=== PATIENT | male | born 1960 | race Caucasian/White ===

== ENCOUNTER 2019-02-18 08:31 | Emergency (ER) | payer OTHER ==
[2019-02-18] MEDS ORDERED: Cyclobenzaprine TAB* 10 MG PO ONE (09:07)
[2019-02-18] MEDS ORDERED: oxyCODONE/Acetamin 5/325 MG* TAB PO ONE (09:07)
--- NOTE | 2019-02-18 09:14 | ED ---
Neck Pain - HPI Summary HPI Summary: The pt is a 58 yr old [place] [facility] [place] pain beginning 2 days [employer]. He states that he was coming back from his hunting camp when he started feeling left sided neck pain. He notes that it started in the mid day and that he has been having lots of other symptoms recently like memory loss and hip pain. He rates his current pain severity a 9/10. The pain is aggravated by moving his neck. No alleviating factors noted. He also reports some headache and felt feverish this morning. He has Hx of HTN and anxiety. - History of Current Complaint Chief Complaint: EDNeckComplaint Stated Complaint: CANT MOVE NECK/HEADACHE PER PT Time Seen by Provider: 02/18/19 08:40 Hx Obtained From: Patient Onset/Duration Of Injury/Symptoms: Days Timing: Constant, Lasting Days Onset/Duration: Sudden Onset, Started days ago, Still Present Severity Initially: Severe Severity Currently: Severe Pain Intensity: 9 Pain Scale Used: 0-10 Numeric Location: Discrete At: - cervical spine Character: Stiff Aggravating Factors: Movement - of neck Alleviating Factors: Nothing Associated Signs & Symptoms: Positive: Fever - since resolved, Headache - Allergies/Home Medications Allergies/Adverse Reactions: Allergies Allergy/AdvReac Type Severity Reaction Status Date / Time No Known Allergies Allergy Verified 02/18/19 08:37 PMH/Surg Hx/FS Hx/Imm Hx Cardiovascular History: Reports: Hx Hypercholesterolemia, Hx Hypertension Psychiatric History: Reports: Hx Anxiety - Surgical History Surgical History: None Surgery Procedure, Year, and Place: none - Immunization History Date of Influenza Vaccine: 02/2019 Infectious Disease History: No Infectious Disease History: Denies: Traveled Outside the [place] in Last 30 Days - Family History Known Family History: Positive: Hypertension - Social History Alcohol Use: Daily Substance Use Type: Reports: None Smoking Status (MU): Never Smoked Tobacco Review of Systems Positive: Fever Musculoskeletal: Other - pos - neck pain Positive: Headache All Other Systems Reviewed And Are Negative: Yes Physical Exam - Summary Physical Exam Summary: Constitutional: Well-developed, Well-nourished, Alert. (-) Distressed Skin: Warm, Dry HENT: Normocephalic; Atraumatic Eyes: Conjunctiva normal Neck: bilateral paraspinal tenderness, pain w ROM worse on L than R. Cardio: Rhythm regular, rate normal, Heart sounds normal; Intact distal pulses; Radial pulses are 2+ and symmetric. (-) Murmur Pulmonary/Chest wall: Effort normal. (-) Respiratory distress, (-) Wheezes, (-) Rales Abd: Soft, (-) tenderness, (-) Distension, (-) Guarding, (-) Rebound Musculoskeletal: (-) Edema, occipital tenderness at the base of the skull Lymph: (-) Cervical adenopathy Neuro: Alert, Oriented x3, Strength 5/5 in upper extremities and sensation intact Psych: Mood and affect Normal Triage Information Reviewed: Yes Vital Signs On Initial Exam: Initial Vitals Temp Pulse Resp BP Pulse Ox 98.5 F 95 16 143/92 98 02/18/19 08:34 02/18/19 08:34 02/18/19 08:34 02/18/19 08:34 02/18/19 08:34 Vital Signs Reviewed: Yes Procedures - Sedation Patient Received Moderate/Deep Sedation with Procedure: No Diagnostics - Vital Signs Vital Signs Temp Pulse Resp BP Pulse Ox 02/18/19 08:34 98.5 F 95 16 143/92 98 - Laboratory Result Diagrams: 02/18/19 10:35 02/18/19 10:35 Lab Statement: Any lab studies that have been ordered have been reviewed, and results considered in the medical decision making process. - CT CT Cervical Spine CT Interpretation Completed By: Radiologist Summary of CT Findings: IMPRESSION: DEGENERATIVE DISC DISEASE AND OSTEOARTHRITIS DESCRIBED ABOVE. ED Physician has reviewed this report. Re-Evaluation - Re-Evaluation First Eval Re-Evaluation Time: 10:27 Change: Improved Comment: Would now like to get blood work as discussed before. Pain slightly improved. Discussed CT findings Second Eval Re-Evaluation Time: 11:10 Comment: normal WBC, CRP. low suspicion infection (osteo/discitis), no risk factors for bacteremia. Plan for motrin/flexeril Neck Course/Dx - Course Course Of Treatment: 58-year-old male presents with upper neck pain. - physical exam with tenderness to the base of the occiput, bilateral cervical spine tenderness, ROM limited worse on L. Denies trauma. No infectious symptoms aside from feeling warm this morning. No fever on exam. Denies URI like symptoms. Suspect headache secondary to musculoskeletal cause. Given patient's diffuse pain, will check a CT of the neck however suspect this is most likely musculoskeletal. Patient given Flexeril and Percocet for pain. - Diagnoses Provider Diagnoses: Neck pain Discharge ED - Sign-Out/Discharge Documenting (check all that apply): Patient Departure - discharge - Discharge Plan Condition: Stable Disposition: HOME Prescriptions: Cyclobenzaprine TAB* [Flexeril 10 MG TAB*] 10 mg PO TID PRN 4 Days #12 tab PRN Reason: Pain - Moderate Ibuprofen TAB* [Motrin TAB* 800 MG] 800 mg PO Q6H 10 Days #30 tab Patient Education Materials: Neck Pain (ED) Referrals: Care [facility] [Outside] - 3 Days Additional Instructions: You were seen in the emergency department for neck pain. Your CT scan showed arthritis but no acute changes. Your lab work did not show any evidence of infection Please follow up with your primary care doctor in next 2-3 days and return to emergency department for worsening pain, numbness or weakness of arms or legs, fevers, worsening headaches or concerning symptoms. It was a pleasure taking care of you today. - Billing Disposition and Condition Condition: STABLE Disposition: Home - Attestation Statements Document Initiated by Vickeye: Yes Documenting Scribe: Mohit Agudelo Provider For Whom Kim is Documenting (Include Credential): Guillermina Condon MD Scribe Attestation: I, Mohit Agudelo, scribed for Guillermina Condon MD on 02/18/19 at 1120. Scribe Documentation Reviewed: Yes Provider Attestation: The documentation as recorded by the [email or web address] accurately reflects the service I personally performed and the decisions made by me, Guillermina Condon MD Status of Scribe Document: Viewed
[2019-02-18 10:51] LABS: ABS Lymphocytes 1.3 10^3/ul (1.0-4.8); ABS Monocytes 0.4 10^3/ul (0-0.8); ABS Neutrophils 6.2 10^3/ul (1.5-7.7); Eosinophil % 0.4 %; Hematocrit 41 % (42-52); Hemoglobin 13.6 g/dL (14.0-18.0); Lymphocyte % 16.5 %; Mean Corpuscular HGB Conc 34 g/dL (31-36); Mean Corpuscular Hemoglobin 30 pg (27-31); Mean Corpuscular Volume 88 fL (80-94); Mean Platelet Volume 9.5 fL (7.4-10.4); Nucleated Red Blood Cells % 0.1; Platelet Count 101 10^3/uL (150-450); Red Blood Count 4.61 10^6 /uL (4.18-5.48); Red Cell Distribution Width 14 % (10-15)
[2019-02-18 11:02] LABS: Albumin 4.4 g/dL (3.2-5.2); Albumin/Globulin Ratio 1.8 (1-3); BUN/Creatinine Ratio 11.9 (8-20); C Reactive Protein 6.94 mg/L (<8.01); Calcium 9.2 mg/dL (8.6-10.3); EGFR African American 84.1 (>60); EGFR Non-African American 69.5 (>60); Globulin 2.5 g/dL (2-4); Potassium 3.7 mmol/L (3.5-5.0); Total Bilirubin 0.5 mg/dL (0.2-1.0); Total Protein 6.9 g/dL (6.4-8.9)
[2019-02-18 11:51] VITALS: BP 109/69
== END 2019-02-18 11:54 | disposition home or self-care (01) ==
LOC: ED 08:31
DX: M54.2 Cervicalgia (principal); I10 Essential (primary) hypertension; F41.9 Anxiety disorder, unspecified; E78.00 Pure hypercholesterolemia, unspecified
CPT/HCPCS: 36415; 72125; 80053; 85025; 86140; 99282; A9270-GY

== ENCOUNTER 2022-11-14 14:28 | Inpatient (IN) ==
[2022-11-14 15:43] LABS: ABS Lymphocytes 0.8 10^3/uL (1.0-4.8); ABS Monocytes 1.4 10^3/uL (0.0-1.1); Hematocrit 40.2 % (38-53); Hemoglobin 13.8 g/dL (13.2-16.3); Lymphocyte % 5.6 %; Mean Corpuscular Hemoglobin 29.4 pg (27-33); Mean Corpuscular Hgb Conc 34.4 g/dL (31-36); Mean Corpuscular Volume 85.5 fL (80-97); Mean Platelet Volume 8.8 fL (7.5-11.2); Platelet Count 123 10^3/uL (150-450); Red Blood Count 4.71 10^6/uL (4.06-5.63); Red Cell Distribution Width 13.7 % (12-17); White Blood Count 14.2 10^3/uL (3.6-10.2)
[2022-11-14 15:51] LABS: INR 1.26 (0.88-1.18)
[2022-11-14 16:01] LABS: Albumin 4.6 g/dL (3.2-5.2); Albumin/Globulin Ratio 1.9 (1-3); Creatinine, Serum 1.5 mg/dL (0.67-1.17); Globulin 2.4 g/dL (2-4); Potassium 4.3 mmol/L (3.5-5.0); eGFR CKD-EPI 52.3 (>60)
[2022-11-14 16:30] LABS: Urine Appearance Clear; Urine Bilirubin Negative (Negative); Urine Blood 2+ (Negative); Urine Color Amber; Urine Glucose Negative (Negative); Urine Ketones 1+ (Negative); Urine Nitrite Negative (Negative); Urine Protein 2+(100 mg/dL) (Negative); Urine Specific Gravity 1.024 (1.002-1.030); Urine Urobilinogen Positive (Negative)
[2022-11-14 16:32] LABS: Urine Bacteria Absent (Absent); Urine Red Blood Cell Trace(0-2/hpf) (Absent); Urine White Blood Cell Trace(0-5/hpf) (Absent)
[2022-11-14] MEDS ORDERED: NS 0.9% 1000 ml BAG 1,000 ML IV ONE ×4 (16:35→20:50)
[2022-11-14] MEDS ORDERED: Iodixanol (CONTRAST) 320 MG/ML 100 ML SDV IV ONE (17:08)
[2022-11-14] MEDS ORDERED: Lorazepam PYXIS KEY PRN (18:09)
[2022-11-14] MEDS: LORazepam 2 mg VIAL 1 ml IV PUSH ONE ×2 (18:19→20:06)
[2022-11-14] MEDS ORDERED: Haloperidol 5 mg/ml SDV IV/IM 5 MG/ML AMP IV SLOW PU ONE (19:18)
[2022-11-14] MEDS ORDERED: LORazepam 2 mg VIAL 1 ml ONE (20:04)
[2022-11-14 20:06] LABS: C Reactive Protein 9.74 mg/L (<8.01)
[2022-11-14] MEDS ORDERED: Acetaminophen IV 1 GM/100ML 1,000 MG/100 ML BAG IV ONE (20:08)
[2022-11-14] MEDS ORDERED: Senna TAB 8.6 mg TAB PO PRN (23:07)
[2022-11-14] MEDS ORDERED: Polyethylene Glycol 3350 17 GM PACKET PO PRN (23:07)
[2022-11-14] MEDS: cefTRIAXone 2 gm/50 mL D5W 2 GM/50 ML BAG IV SCH (23:55)
[2022-11-15] MEDS: Lactated Ringers 1000 ml BAG 1,000 ML IV SCH ×2 (00:31→06:50)
[2022-11-15] MEDS: Enoxaparin 40 MG/0.4 ML SYR SUBCUT SCH ×2 (00:41→21:21)
[2022-11-15 06:43] LABS: ABS Lymphocytes 1.5 10^3/uL (1.0-4.8); ABS Monocytes 1.3 10^3/uL (0.0-1.1); ABS Neutrophils 9.4 10^3/uL (1.5-7.6); ABS Nucleated RBC 0.01 10^3/ul; Eosinophil % 0.2 %; Hematocrit 35.4 % (38-53); Hemoglobin 12.4 g/dL (13.2-16.3); Mean Corpuscular Hemoglobin 29.8 pg (27-33); Mean Platelet Volume 8.3 fL (7.5-11.2); Nucleated Red Blood Cells % 0.1 /100 WBC (0.0-0.4); Platelet Count 123 10^3/uL (150-450); Red Blood Count 4.17 10^6/uL (4.06-5.63); Red Cell Distribution Width 13.7 % (12-17); White Blood Count 12.3 10^3/uL (3.6-10.2)
[2022-11-15 06:59] LABS: Calcium 8.2 mg/dL (8.6-10.3); Creatinine, Serum 1.02 mg/dL (0.67-1.17); Potassium 3.4 mmol/L (3.5-5.0); eGFR CKD-EPI 83.1 (>60)
[2022-11-15] MEDS ORDERED: Sodium Phosphate ADULT ENEMA 133 ML BTL PR ONE (09:46)
[2022-11-15] MEDS: Senna TAB 8.6 mg TAB PO SCH ×3 (16:08→19:44)
[2022-11-15] MEDS: Polyethylene Glycol 3350 17 GM PACKET PO SCH ×3 (16:09→19:43)
[2022-11-15] MEDS ORDERED: Potassium Chlor 20 meq TAB.ER PO ONE (17:46)
[2022-11-15] MEDS: cefTRIAXone 2 gm/50 mL D5W 2 GM/50 ML BAG IV SCH ×2 (21:23→22:38)
[2022-11-16] MEDS ORDERED: D5W 1/2 NS 1000 ml BAG 1,000 ML IV SCH (06:00)
[2022-11-16 07:03] LABS: Hematocrit 37.1 % (38-53); Hemoglobin 12.9 g/dL (13.2-16.3); Mean Corpuscular Hemoglobin 29.6 pg (27-33); Mean Corpuscular Hgb Conc 34.7 g/dL (31-36); Mean Corpuscular Volume 85.3 fL (80-97); Mean Platelet Volume 8.4 fL (7.5-11.2); Platelet Count 144 10^3/uL (150-450); Red Blood Count 4.35 10^6/uL (4.06-5.63); Red Cell Distribution Width 13.8 % (12-17); White Blood Count 11.9 10^3/uL (3.6-10.2)
[2022-11-16 07:17] LABS: Calcium 8.5 mg/dL (8.6-10.3); Magnesium 1.9 mg/dL (1.9-2.7); Phosphorus 2.1 mg/dL (2.5-5.0); Potassium 3.7 mmol/L (3.5-5.0); eGFR CKD-EPI 85.1 (>60)
[2022-11-16] MEDS ORDERED: Lactated Ringers 1000 ml BAG 1,000 ML IV ONE ×2 (07:41→10:44)
[2022-11-16] MEDS ORDERED: Senna TAB 8.6 mg TAB PO PRN (08:28)
[2022-11-16] MEDS ORDERED: Polyethylene Glycol 3350 17 GM PACKET PO PRN (08:29)
[2022-11-16] MEDS ORDERED: Potassium Phosphate IV 10 MMOL in NS 0.9% 250 ml 250 ML IVPB ONE (09:00)
[2022-11-16] MEDS: Polyethylene Glycol 3350 17 GM PACKET PO SCH (10:41)
[2022-11-16] MEDS: Enoxaparin 40 MG/0.4 ML SYR SUBCUT SCH (21:29)
[2022-11-16] MEDS: cefTRIAXone 2 gm/50 mL D5W 2 GM/50 ML BAG IV SCH (21:30)
[2022-11-17] MEDS: Enoxaparin 40 MG/0.4 ML SYR SUBCUT SCH (21:39)
[2022-11-17] MEDS: cefTRIAXone 2 gm/50 mL D5W 2 GM/50 ML BAG IV SCH (21:39)
[2022-11-18] MEDS: Enoxaparin 40 MG/0.4 ML SYR SUBCUT SCH (21:32)
[2022-11-18] MEDS: cefTRIAXone 2 gm/50 mL D5W 2 GM/50 ML BAG IV SCH (21:32)
[2022-11-19] MEDS: Enoxaparin 40 MG/0.4 ML SYR SUBCUT SCH (20:47)
[2022-11-20 07:59] LABS: ABS Eosinophils 0.3 10^3/uL (0.0-0.5); ABS Lymphocytes 1.6 10^3/uL (1.0-4.8); ABS Monocytes 0.7 10^3/uL (0.0-1.1); ABS Neutrophils 5.2 10^3/uL (1.5-7.6); Eosinophil % 3.5 %; Hematocrit 37.6 % (38-53); Lymphocyte % 20.2 %; Mean Corpuscular Hemoglobin 29.8 pg (27-33); Mean Corpuscular Hgb Conc 34.7 g/dL (31-36); Mean Corpuscular Volume 85.9 fL (80-97); Mean Platelet Volume 7.4 fL (7.5-11.2); Platelet Count 251 10^3/uL (150-450); Red Blood Count 4.38 10^6/uL (4.06-5.63); Red Cell Distribution Width 13.4 % (12-17); White Blood Count 7.8 10^3/uL (3.6-10.2)
[2022-11-20 08:08] LABS: Calcium 8.6 mg/dL (8.6-10.3); Creatinine, Serum 0.94 mg/dL (0.67-1.17); Potassium 3.6 mmol/L (3.5-5.0); eGFR CKD-EPI 91.7 (>60)
[2022-11-20 09:28] LABS: Phosphorus 3.3 mg/dL (2.5-5.0)
[2022-11-20] MEDS: Enoxaparin 40 MG/0.4 ML SYR SUBCUT SCH (21:10)
[2022-11-21 14:47] LABS: Urine Appearance Clear; Urine Bilirubin Negative (Negative); Urine Blood Negative (Negative); Urine Color Yellow; Urine Glucose Negative (Negative); Urine Ketones Negative (Negative); Urine Nitrite Negative (Negative); Urine Protein Negative (Negative); Urine Urobilinogen Negative (Negative)
[2022-11-21 15:38] VITALS: BP 120/63
== END 2022-11-21 16:28 | disposition short-term general hospital (02) | DRG 71 ==
LOC: ED 14:28 → EDHOLD 14:28 → SUATTDRO 23:07 → MEDTELE 11-15 02:56
PROVIDERS: ADMIT Internal Medicine; ATTEND Family Medicine

== ENCOUNTER 2022-11-21 16:38 | Inpatient (IN) ==
[2022-11-21] MEDS ORDERED: Senna TAB 8.6 mg TAB PO PRN (17:19)
[2022-11-21] MEDS ORDERED: Polyethylene Glycol 3350 17 GM PACKET PO PRN ×2 (17:19→17:22)
[2022-11-21 18:32] VITALS: BP 158/78
[2022-11-21] MEDS ORDERED: Enoxaparin 40 MG/0.4 ML SYR SUBCUT SCH (22:00)
[2022-11-22 12:11] LABS: Rapid COVID-19 Molecular Undetected (Undetected)
== END 2022-11-22 14:36 | DRG 392 ==
LOC: SUATTDRO 17:28 → MEDTELE 17:28
PROVIDERS: ADMIT Internal Medicine; ATTEND Pediatrics